=== PATIENT | male | born 1955 | race Caucasian/White ===

== ENCOUNTER 2024-08-20 10:08 | Emergency (ER) | payer OTHER, SELFPAY ==
[2024-08-20 12:00] VITALS: BP 138/74
--- NOTE | 2024-08-20 12:29 | ED.GENMED ---
History of Present Illness
General
Chief Complaint: Musculo-Skeletal Complaint
Source: patient and family
Exam Limitations: none
Time Seen by Provider: 08/20/24 12:01
Nursing documentation reviewed up to this point in time: agreed with
History of Present Illness
History of Present Illness:
69 y/o M with h/o parkinsons
cad, htn, hld, NIDDM
here with R knee pain and swelling after mechanical all 2 days ago while on the steps going down to his basement. he had things in both hands and lost balance. he falls sometimes due to parkinsons
he fell landing on a flexed knee under him
he had no head strike, loc, dizziness pre fall
no thinners
took him a little bit to get back up
came home about 20 minutes later and helped him
he has been walking since but feels his knee give out at times and has caused a few more falls since - he feels it give out or have a lot of pain with twisting movement
he has taken tylenol fo rpain
Past History
Past History
ED Past Medical History: HTN, Hypercholesterolemia and Other
Social History
Tobacco: Non-smoker
Personal:
Review of Systems
Review of Systems
Allergies reviewed?: Yes
All Other Systems: Not applicable
Phy Exam
Physical Exam
Physical Exam:
GENERAL: Alert , in no apparent distress, comfortable at rest
HEAD: NCAT
CV: 2+ DP PULSES B/L
NEUROLOGICAL: Alert and oriented, no focal neuro deficits, , 5/5 strength, sensation intact, ambulation slight limp right leg
SKIN: Warm and dry, mild ecchymosis L anterior knee prox
MUSCULOSKELETAL: severe L knee swelling/effusion
no specific tenderness
unable to straight leg raise
unable to straight leg raise with passive knee flexion
normal senstaion
no distal tendernsss
mild laxity varus/valgus
no ant posteriro drawer
PSYCH: Normal and appropriate interaction.
Course
Orders/Labs/Results
Orders:
Orders
08/20/24 10:27
Knee, Right 4 or More Views [CR Knee- Right 4 Or More View*] Urgent
Comment:
Reason For Exam: injury
Vital Signs
Initial and Last Documented VS:
Initial Vital Signs
Temp Pulse Resp Pulse Ox
98.2 F 110 16 98
08/20/24 10:22 08/20/24 10:22 08/20/24 10:22 08/20/24 10:22
Last Documented Vital Signs
Temp Pulse Resp BP Pulse Ox
98.2 F 75 18 138/74 97
08/20/24 10:22 08/20/24 12:00 08/20/24 12:00 08/20/24 12:00 08/20/24 12:00
MDM/Problems Addressed
Differential Diagnosis Includes:
knee effusion, fracture, knee sprain, ligametnous injury, patellar tendon rupture
MDM/Problems Addressed:
8 y/o M
parkinsons
fall down 4 steps wednesday and landed on flexed knee
can minimally weight bear but feels it giving out and has had 4 other falls since
large joint effusion; he is unable to straight leg raise; i can passively flex him and i feel like he has some varus and valgus laxity
he is not anticoagulated
xray shows some OA and joint effusion but no obvious f, indep reviewed by me
d/w ortho
no utility in aspirating traumatic efusion
will place in knee immob
pt did well with walker, has one at home
f/u ortho
rice
*Critical Care Note
Total Time (30-74mins, 75-104mins- exclusive of procedures): Not Applicable
ED Attending Note
-
Portions of this chart may have been created with voice recognition software.� Occasional wrong word or��sound alike� substitutions may have occurred due to the inherent limitations of voice recognition software.
Discharge Plan
Departure
Patient Disposition: Home (Routine Discharge)
Date of Disposition: 08/20/24
Time of Disposition: 12:38
Patient with high blood pressure during this ER visit?: No
Condition: Fair
Covid-19: Not Applicable
Discharge Problem:
Effusion of knee joint right, Injury of knee, right
Instructions: Knee Immobilizer (DC), Knee Sprain (DC)
Prescriptions:
No Action
irbesartan 150 MG tablet
150 mg PO HS
nitroglycerin 0.4 MG tablet, sublingual
0.4 mg sublingual [id number] PRN (Reason: chest pain)
sertraline 100 MG tablet
200 mg PO HS
atorvastatin 10 MG tablet
10 mg PO QPM
isosorbide mononitrate 30 MG tablet extended release 24 hr
30 mg PO DAILY
omeprazole 40 MG capsule,delayed release(DR/EC)
40 mg PO DAILY
glimepiride 2 MG tablet
2 mg PO DAILY
pramipexole 0.25 MG tablet
0.25 mg PO TID
carbidopa-levodopa 1 EACH tablet
1 ea PO TID
diltiazem HCl 240 MG tablet extended release 24 hr
240 mg PO DAILY
metformin 750 MG tablet extended release 24 hr
750 mg PO BID
zrlenhvyr-lcvberyf-nbwbdtbzbz 1 EACH tablet
1 ea PO QID
Referrals:
Александр Lombardi MD [Active] - Follow up in 2-3 days (ortho)
Elva Maria MD [Family Provider] -
Activity Restrictions/Additional Instructions:
Your x-ray showed no fracture but you have a very large joint effusion suggesting internal knee injury. This could be a ligament or tendon. You absolutely need to follow-up with orthopedics. In the meantime use the knee immobilizer to keep your
knee stable. You can use a walker to keep from fully weightbearing on that right leg I am giving you some stability. Take Tylenol or ibuprofen if you are allowed for pain. Ice off-and-on. Probably try to do less walking until you get seen by
orthopedics. Return for any concerns.
Interventions
Interventions:
*Risk Screen - Suicide Last Done: 08/20/24 10:22
*General Assessment Last Done: 08/20/24 12:30
*Neglect/Abuse Screening Last Done: 08/20/24 10:22
ED- Fall Risk Assessment Last Done: 08/20/24 12:30
*ED COVID-19 Vaccine History Last Done: 08/20/24 12:30
*Nursing Disposition Last Done: 08/20/24 13:10
ED-Musculoskeletal Assessment Last Done: 08/20/24 13:18
Discharge Date and Time
Discharge Date/Time: 08/20/24 13:20
Print Language: GEORGIAN
== END 2024-08-20 13:20 | disposition home or self-care (01) ==
LOC: EMR 10:08
PROVIDERS: EMERGENCY PHYSICIAN Emergency Medicine; FAMILY PHYSICIAN Family Medicine
DX: M25.461 Effusion, right knee (principal); S89.91XA Unspecified injury of right lower leg, initial encounter; W10.9XXA Fall (on) (from) unspecified stairs and steps, initial encounter; G20.A1 Parkinson's disease without dyskinesia, without mention of fluctuations; I25.10 Atherosclerotic heart disease of native coronary artery without angina pectoris; I10 Essential (primary) hypertension; E78.00 Pure hypercholesterolemia, unspecified; E11.9 Type 2 diabetes mellitus without complications
CPT/HCPCS: 99283; 73564

== ENCOUNTER 2024-08-23 06:20 | Day surgery (SDC) | payer OTHER, SELFPAY ==
[2024-08-23] VITALS (7 sets, daily range): BP systolic 111–140; BP diastolic 71–80; BMI 30.6
[2024-08-23] MEDS: CELEBREX 200 MG PO (10:01)
[2024-08-23] MEDS: TYLENOL 1000 MG PO (10:01)
[2024-08-23 11:01] LABS: Glucose - Point of Care 111 mg/dl (70-99)
[2024-08-23 13:13] LABS: Glucose - Point of Care 125 mg/dl (70-99)
--- NOTE | 2024-08-23 13:32 | SUR.PHASEI ---
Lunch relief, alert awake, vss denies c/o used urinal norm well, positioned for comfort
== END 2024-08-23 14:54 | disposition home or self-care (01) ==
LOC: SDS 06:20
PROVIDERS: ATTENDING PHYSICIAN Orthopaedic Surgery Hand Surgery
PROC: 0LQL0ZZ Repair Right Upper Leg Tendon, Open Approach (ICD-10-PCS; 2024-08-23)
DX: S76.111A Strain of right quadriceps muscle, fascia and tendon, initial encounter (principal); X58.XXXA Exposure to other specified factors, initial encounter
CPT/HCPCS: 27385; 82962; C1713

== ENCOUNTER → 2024-09-20 07:24 | Outpatient (REF) | payer OTHER, SELFPAY | LOC: MRI 07:24 | PROVIDERS: ATTENDING PHYSICIAN Physician Assistant Surgical; FAMILY PHYSICIAN Family Medicine | DX: M25.561 Pain in right knee (principal) | CPT/HCPCS: 73721 ==

== ENCOUNTER → 2024-09-27 06:19 | Day surgery (SDC) | payer OTHER, SELFPAY ==
[2024-09-27] VITALS (11 sets, daily range): BP systolic 111–177; BP diastolic 67–110; BMI 30.9
[2024-09-27 11:14] LABS: Glucose - Point of Care 100 mg/dl (70-99)
[2024-09-27] MEDS: TYLENOL 1000 MG PO (11:26)
[2024-09-27 13:03] LABS: Glucose - Point of Care 120 mg/dl (70-99)
[2024-09-27] MEDS: ROXICODONE 5 MG PO ×2 (17:04→18:04)
[2024-09-27] MEDS: TYLENOL 650 MG PO (17:23)
--- NOTE | 2024-09-27 19:01 | PTCARENOTE ---
Patient has not had urge to void since arrival into [facility]. Bladder scan showing >650mls urine. Dr Olivares notified, orders obtained to straight cath. Pt also has been c/o 'screaming 10/10' incisional pain that is radiating down his leg despite
taking multiple po pain meds in [facility]. Dr Olivares notified and came to assess patient. After speaking with pt, decision was made to do a nerve block. Patient moved back to PACU for procedure. HU Brasher to resume patient's care. aware of
plan & is now in the waiting room. Will continue to monitor.
== END ==
LOC: SDS 06:19
PROVIDERS: ATTENDING PHYSICIAN Orthopaedic Surgery Hand Surgery
DX: S76.111A Strain of right quadriceps muscle, fascia and tendon, initial encounter (principal); W19.XXXA Unspecified fall, initial encounter
CPT/HCPCS: 27385; 82962; C1713; C1776

== ENCOUNTER → 2025-05-04 15:48 | Outpatient (REF) | payer OTHER, SELFPAY | LOC: RAD 15:48 | PROVIDERS: ATTENDING PHYSICIAN Nurse Practitioner Family | DX: M79.661 Pain in right lower leg (principal) | CPT/HCPCS: 93971 ==